=== PATIENT | female | born 1985 | race Caucasian/White ===

== ENCOUNTER 2018-04-06 12:28 | Emergency (ER) | payer BC ==
[2018-04-06] MEDS ORDERED: Ketorolac Tromethamine 30 MG/ML VIAL ONE ×2 (12:58→13:44)
[2018-04-06] MEDS ORDERED: Water For Inject, Bacteriostat 30 ML ONE (12:58)
[2018-04-06] MEDS ORDERED: diphenhydrAMINE 50 MG/ML VIAL ONE (12:58)
[2018-04-06] MEDS ORDERED: methylPREDNISolone Sod Succ/PF 125 MG/2 ML VIAL ONE (12:58)
[2018-04-06] MEDS ORDERED: Metoclopramide HCl 10 MG/2 ML VIAL ONE (12:58)
[2018-04-06 13:20] LABS: Pregnancy Test - Urine (BHCG) Negative (Negative); Pregu Control Background? CLEAR/WHITE (CLR/WHITE); Pregu Control Bar Appear? YES (CONTROL BAR); Specific Gravity 1.015 (1.002-1.036)
[2018-04-06 13:22] LABS: #Basophils 0.1 thou/uL (0.0-0.2); #Lymphocytes 1.4 thou/uL (1.20-3.40); #Monocytes 0.3 thou/uL (0.11-0.59); #Neutrophils 3.3 thou/uL (1.40-6.50); %Basophils 1.1 % (0.0-1.0); %Eosinophils 0.3 % (0.0-10.0); %Lymphocytes 27.6 % (21.0-51.0); %Monocytes 6.4 % (0.0-10.0); %Neutrophils 64.5 % (42.0-75.0); Hemoglobin 13.2 g/dL (12.0-16.0); Mean Corpuscular HGB CONC 34.5 g/dL (32.0-36.0); Mean Corpuscular Hemoglobin 30.4 pg (27.0-31.0); Mean Corpuscular Volume 88.1 fl (81.0-99.0); Mean Platelet Volume 9.6 fL (7.4-10.4); Platelet Count 177 thou/uL (130-400); RBC Distribution Width 10.8 % (11.5-14.5); Red Blood Cell (RBC) Count 4.36 mill/uL (4.20-5.40); White Blood Cell (WBC) Count 5.1 thou/uL (4.8-10.8)
[2018-04-06 13:29] LABS: ALT (SGPT) 11 U/L (8-55); AST (SGOT) 14 U/L (5-34); Albumin 4.3 g/dL (3.5-5.0); Alkaline Phosphatase 46 U/L (40-150); Anion Gap 12 mmol/L (10-20); BUN (Urea Nitrogen) 13 mg/dL (7.0-18.7); Bilirubin, Total 0.8 mg/dL (0.2-1.2); Calc. Creatinine Clearance 0 mL/min (70-130); Carbon Dioxide 27 mmol/L (22-29); Chloride 107 mmol/L (98-107); Estimated GFR-MDRD Greater than 90; Globulin 2.3 g/dL (2.4-3.5); Glucose 101 mg/dL (70-105); Potassium 3.8 mmol/L (3.5-5.1); Protein, Total 6.6 g/dL (6.0-8.3); Sodium 142 mmol/L (136-145)
--- NOTE | 2018-04-06 13:46 | CT ---
CT BRAIN WITHOUT CONTRAST: History: Headache, migraine. Comparison: 07-20-13 FINDINGS: No evidence of infarct, hemorrhage, midline shift, or abnormal extraaxial fluid collections are seen. The ventricular size is normal and the basilar cisterns patent. The bony calvarium is intact. The vi sualized paranasal sinuses and mastoid air cells are well aerated. IMPRESSION: No CT evidence of acute intracranial process. POS: [facility]
[2018-04-06] MEDS ORDERED: Magnesium Sulfate 2 GM/NS 0.9% 50 ML BAG ONE (14:13)
== END 2018-04-06 17:10 | disposition home or self-care (01) ==
LOC: SCSER 12:28
DX: G43.909 Migraine, unspecified, not intractable, without status migrainosus (principal); F32.9 Major depressive disorder, single episode, unspecified; Z79.899 Other long term (current) drug therapy
CPT/HCPCS: 70450; 80053; 81025; 84443; 85025; 96365; 96367; 96375; J1200; J1885; J2765; J2930; J3475

== ENCOUNTER 2018-04-22 13:18 | Emergency (ER) | payer BC ==
[~2018-04-22 13:18] MED LIST: Gadobenate Dimeglumine 529 MG/1 ML (20ML VIAL) ONE
[2018-04-22 15:38] LABS: #Basophils 0.1 thou/uL (0.0-0.2); #Lymphocytes 1.6 thou/uL (1.20-3.40); #Monocytes 0.3 thou/uL (0.11-0.59); #Neutrophils 5.6 thou/uL (1.40-6.50); %Basophils 0.7 % (0.0-1.0); %Eosinophils 0.3 % (0.0-10.0); %Lymphocytes 20.8 % (21.0-51.0); %Monocytes 4.3 % (0.0-10.0); Hemoglobin 14.2 g/dL (12.0-16.0); Mean Corpuscular HGB CONC 34.8 g/dL (32.0-36.0); Mean Corpuscular Hemoglobin 29.3 pg (27.0-31.0); Mean Corpuscular Volume 84.3 fL (78.0-98.0); Mean Platelet Volume 8.7 fL (7.4-10.4); Platelet Count 169 thou/uL (130-400); RBC Distribution Width 10.4 % (11.5-14.5); Red Blood Cell (RBC) Count 4.84 mill/uL (4.20-5.40); White Blood Cell (WBC) Count 7.6 thou/uL (4.8-10.8)
[2018-04-22 15:46] LABS: ALT (SGPT) 21 U/L (8-55); AST (SGOT) 22 U/L (5-34); Albumin 4.7 g/dL (3.5-5.0); Alkaline Phosphatase 44 U/L (40-150); Anion Gap 16 mmol/L (10-20); BUN (Urea Nitrogen) 12 mg/dL (7.0-18.7); Bilirubin, Total 0.3 mg/dL (0.2-1.2); CRP (Inflammatory) Less than 0.50 mg/dL (= or < 0.5); Calc. Creatinine Clearance 0 mL/min (70-130); Calcium 9.3 mg/dL (7.8-10.44); Carbon Dioxide 24 mmol/L (22-29); Chloride 107 mmol/L (98-107); Estimated GFR-MDRD Greater than 90; Globulin 2.4 g/dL (2.4-3.5); Glucose 87 mg/dL (70-105); Potassium 3.8 mmol/L (3.5-5.1); Protein, Total 7.1 g/dL (6.0-8.3); Sodium 143 mmol/L (136-145)
--- NOTE | 2018-04-22 15:46 | MRI ---
MRI BRAIN WITH AND WITHOUT CONTRAST: Date: 04/22/18 Multiplanar, multisequential imaging of brain obtained. Postcontrast images obtained after administra tion of 9 mL MultiHance IV. INDICATION: Headache. Correlation made to MRI brain from [address] brain of 04/06/18. FINDINGS: The ventricles have normal size and position. No evidence of mass or edema. No evidence of restricted diffusion. No evidence of white matter abnormality. The intracranial internal carotid arteries and c erebral arteries show flow-voids. Dural venous sinuses appear patent. Small mucus retention cyst in t he floor of the right maxillary antrum measuring approximately 1.0 cm. No abnormal enhancement identi fied. IMPRESSION: 1. Unremarkable MRI of brain. 2. Small mucus retention cyst floor of right maxillary sinus. POS: [facility]
== END 2018-04-22 17:33 | disposition home or self-care (01) ==
LOC: SCSER 13:18
DX: E05.90 Thyrotoxicosis, unspecified without thyrotoxic crisis or storm (principal); R51 Headache; F32.9 Major depressive disorder, single episode, unspecified; Z79.899 Other long term (current) drug therapy
CPT/HCPCS: 70553; 80053; 84443; 85025; 85652; 86140; 96361; 96374; A9579

== ENCOUNTER 2018-07-07 18:41 | Observation (INO) | payer BC ==
--- NOTE | 2018-07-07 19:31 | RAD ---
SINGLE VIEW OF THE CHEST: 07/07/18 COMPARISON: None. HISTORY: Fatigue and weakness with chest pain. FINDINGS: Single view of the chest shows a normal sized cardiomediastinal silhouette. There is no evidence of c onsolidation, mass, or pleural effusion. The bones are unremarkable. IMPRESSION: No evidence of acute cardiopulmonary disease. POS: [facility]
[2018-07-07 19:42] LABS: ALT (SGPT) 18 U/L (8-55); AST (SGOT) 21 U/L (5-34); Albumin 4.4 g/dL (3.5-5.0); Alkaline Phosphatase 55 U/L (40-150); Anion Gap 11 mmol/L (10-20); BUN (Urea Nitrogen) 16 mg/dL (7.0-18.7); Bilirubin, Total 0.3 mg/dL (0.2-1.2); CK (CPK) 93 U/L (29-168); Calc. Creatinine Clearance 0 mL/min (70-130); Calcium 8.9 mg/dL (7.8-10.44); Carbon Dioxide 22 mmol/L (22-29); Chloride 111 mmol/L (98-107); Estimated GFR-MDRD 85; Globulin 2.4 g/dL (2.4-3.5); Glucose 94 mg/dL (70-105); Potassium 3.7 mmol/L (3.5-5.1); Protein, Total 6.8 g/dL (6.0-8.3); Sodium 140 mmol/L (136-145)
[2018-07-07 19:43] LABS: CKMB 0.2 ng/mL (0-6.6); Troponin I Less than 0.010 ng/mL (< 0.028)
[2018-07-07] MEDS ORDERED: Metoclopramide HCl 10 MG/2 ML VIAL ONE (20:10)
[2018-07-07] MEDS ORDERED: Acetaminophen 500 MG TAB ONE (20:10)
[2018-07-07 20:21] LABS: #Basophils 0.1 thou/uL (0.0-0.2); #Lymphocytes 2.1 thou/uL (1.20-3.40); #Monocytes 0.3 thou/uL (0.11-0.59); #Neutrophils 2.8 thou/uL (1.40-6.50); %Basophils 1.1 % (0.0-1.0); %Eosinophils 0.9 % (0.0-10.0); %Lymphocytes 40.5 % (21.0-51.0); %Monocytes 4.9 % (0.0-10.0); %Neutrophils 52.6 % (42.0-75.0); Hemoglobin 13.9 g/dL (12.0-16.0); Mean Corpuscular HGB CONC 33.2 g/dL (32.0-36.0); Mean Corpuscular Hemoglobin 29.9 pg (27.0-31.0); Mean Platelet Volume 8.8 fL (7.4-10.4); Platelet Count 196 thou/uL (130-400); RBC Distribution Width 10.7 % (11.5-14.5); Red Blood Cell (RBC) Count 4.64 mill/uL (4.20-5.40); White Blood Cell (WBC) Count 5.2 thou/uL (4.8-10.8)
[2018-07-07 22:40] VITALS: BMI 16.7
[2018-07-07 23:01] LABS: Troponin I Less than 0.010 ng/mL (< 0.028)
[2018-07-07] MEDS ORDERED: Ondansetron HCl/PF 4 MG/2 ML Vial IVP PRN (23:21)
[2018-07-07] MEDS ORDERED: Acetaminophen 325 MG TAB PO PRN (23:21)
[2018-07-08] MEDS: Sodium Chloride 0.9% 1,000 ML IV SCH ×2 (00:07→14:25)
--- NOTE | 2018-07-08 01:14 | HP ---
DATE OF ADMISSION: 07/07/2018 PRIMARY CARE PHYSICIAN: Dr. Mavis Downs. CODE STATUS: FULL CODE. TIME OF EVALUATION: 11:30 p.m. CHIEF COMPLAINT: Substernal chest pain. HISTORY OF PRESENT ILLNESS: This is a 33-year-old female patient with past medical history of migraines, history of thyroid cancer, that has been in remission, came to the hospital after having shortness of breath on exertion and also having some on and off chest pain. The last one was today, substernal , reported as [id number]. No clear triggers, no alleviating factors, she also reported some associated cough, no fever was noted. Patient has had some workup for possible immunological disease versus possible neurological syndrome. Patient has had left-sided weakness and has had multiple MRIs, MRAs, and CT with no evidence of any diagnosis as of now, she is receiving that workup. Pending Rheumatology workup for further treatment. The EKG in the ER, she was found to have ST depressions in leads V2, V3, aVF and also V3 to V6, troponin was negative, we will place Cardiology consult for assistance with this case. REVIEW OF SYSTEMS: Constitutional: No fever or chills. Patient reported generalized weakness. Respiratory: Patient has no cough, no sputum production , shortness of breath. Cardiovascular: Patient has reported chest pain or palpitations. Gastrointestinal: No nausea, no abdominal pain, no diarrhea. 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 Patient has long-term left-sided weakness that she feels remains the same. Genitourinary: No burning on urination. Extremities: No leg swelling. All other systems were reviewed and negative except for the findings mentioned above. PAST MEDICAL HISTORY: Positive for migraine, thyroid cancer. PAST SURGICAL HISTORY: Thyroidectomy, x2, deviated septum repair. PSYCHIATRIC HISTORY: Depression. FAMILY HISTORY : Reviewed and non contributory for current presentation. SOCIAL HISTORY: Patient drinks socially. No drug use, no smoking history. DRUG ALLERGIES: No known drug allergies. REPORTED MEDICATIONS: Synthroid, gabapentin. PHYSICAL EXAMINATION: VITAL SIGNS: On presentation, blood pressure 105/86 with heart rate 100, respiratory rate was 18, temperature 98.1, pain 7/10, oxygen saturation 97 on room air. GENERAL APPEARANCE: The patient is alert, oriented, not in any acute distress. HEENT: Eye, normal conjunctiva. Moist oral mucosa. Anicteric. NECK: No JVD. RESPIRATORY: Bilateral air entry. No rales, no wheezing. Symmetrical expansion. CARDIOVASCULAR: Normal rate, regular rhythm. No murmurs, no gallop. No edema. ABDOMEN: Soft, normal bowel sounds. MUSCULOSKELETAL: Baseline range of motion and strength. No tenderness. SKIN: Warm and intact. No pallor, no rash, no redness. NEUROLOGIC: Cranial nerve seems to be intact. PSYCHIATRIC: Patient is in good mood, no anxiety, oriented, optimal judgment. IMAGING: EKG was reviewed by myself. The patient has normal sinus rhythm with T-wave abnormality in lead II, III and aVF and also in V3 to V5 to V6. Chest x- ray, patient has no evidence of acute cardiopulmonary disease. LABORATORY DATA: White count was normal, hemoglobin was normal, platelet count was normal. D-dimer was negative. Sodium 140, potassium 3.7, chloride 111, carbon dioxide 22, anion gap 11, BUN 16, creatinine 0.7, GFR 85, glucose 94, calcium 8.9. LFTs are normal. Troponin is negative x2. ASSESSMENT AND PLAN: The patient will be placed in the hospital with the following medical problems. 1. Chest pain, rule out acute coronary syndrome. This very young patient possibility for underlying disease is present. We are consulting Dr. Yi for assistance with this case. We will follow recommendations. 2. 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 Patient has got extensive neurological workup. She reported that she is going to complete the workup in [place] and no need for any acute intervention at this point from our part. 3. Deep venous thrombosis prophylaxis. 4. Hypothyroidism. Continue levothyroxine. MTDD
[2018-07-08 02:05] LABS: BHCG - Serum Negative (NEGATIVE); Pregs Control Background? CLEAR/WHITE (CLR/WHITE); Pregs Control Bar Appear? YES (CONTROL BAR)
[2018-07-08 02:28] LABS: Troponin I Less than 0.010 ng/mL (< 0.028)
[2018-07-08 04:23] LABS: #Eosinphils 0.1 thou/uL (0.0-0.7); #Lymphocytes 1.9 thou/uL (1.20-3.40); #Monocytes 0.3 thou/uL (0.11-0.59); #Neutrophils 2.4 thou/uL (1.40-6.50); %Basophils 0.4 % (0.0-1.0); %Eosinophils 1.3 % (0.0-10.0); %Lymphocytes 40.8 % (21.0-51.0); %Monocytes 7.2 % (0.0-10.0); %Neutrophils 50.2 % (42.0-75.0); Mean Corpuscular HGB CONC 35.1 g/dL (32.0-36.0); Mean Corpuscular Hemoglobin 32.3 pg (27.0-31.0); Mean Corpuscular Volume 91.9 fL (78.0-98.0); Mean Platelet Volume 8.3 fL (7.4-10.4); Platelet Count 177 thou/uL (130-400); RBC Distribution Width 11.3 % (11.5-14.5); Red Blood Cell (RBC) Count 3.73 mill/uL (4.20-5.40); White Blood Cell (WBC) Count 4.7 thou/uL (4.8-10.8)
[2018-07-08 04:29] LABS: Anion Gap 11 mmol/L (10-20); BUN (Urea Nitrogen) 18 mg/dL (7.0-18.7); Calc. Creatinine Clearance 84 mL/min (70-130); Calcium 8.2 mg/dL (7.8-10.44); Carbon Dioxide 19 mmol/L (22-29); Chloride 112 mmol/L (98-107); Estimated GFR-MDRD Greater than 90; Glucose 94 mg/dL (70-105); Potassium 3.4 mmol/L (3.5-5.1); Sodium 139 mmol/L (136-145)
[2018-07-08] MEDS ORDERED: Levothyroxine Sodium 125 MCG TAB PO SCH (06:00)
[2018-07-08] MEDS: Gabapentin 100 MG CAP PO SCH ×2 (09:18→15:16)
[2018-07-08] MEDS ORDERED: ADENOSINE 60 MG/20 ML VIAL ONE (13:45)
[2018-07-08 14:55] VITALS: BP 104/65; TEMP 98.2
--- NOTE | 2018-07-08 15:16 | NM ---
RADIONUCLIDE STRESS REST MYOCARDIAL PERFUSION SCAN WITH CT ATTENUATION CORRECTION AND SPECT IMAGING LEFT VENTRICULAR WALL MOTION EVALUATION AND EJECTION FRACTION: HISTORY: chest pain FINDINGS: Adenosine protocol. Homogeneous uptake of radiotracer throughout the left ventricular myocardium. N o focal perfusion defect or reversibility. QGS analysis of gated SPECT images shows no focal wall mo tion abnormalities. Left ventricular ejection fraction estimated at 65%. IMPRESSION: Normal myocardial perfusion scan. Normal left ventricular ejection fraction. POS: [facility]
--- NOTE | 2018-07-08 15:19 | DIS ---
DATE OF ADMISSION: 07/07/2018 DATE OF DISCHARGE: 07/08/2018 PRIMARY CARE PROVIDER: Mavis Downs M.D. FINAL DIAGNOSES: Chest pain, unknown etiology; migraine headaches; hypothyroidism post-thyroid cance r surgery therapy; depression. DISCHARGE MEDICATIONS: Same as home medicines, levothyroxine 125 mcg a day, topiramate 150 mg at bed time, Zoloft 75 mg a day, gabapentin 100 mg 3 times a day, [id number]-idlwkmro 5-300-40 one tablet t.i.d. as needed for headaches. ALLERGIES: Allergic to MAXALT. CODE STATUS: FULL. PENDING AT THE TIME OF DISCHARGE: Nothing. DIET: Regular. HOSPITAL COURSE: The patient admitted with atypical chest pain, left-sided, aching to sharp. The cherelle choi has a history of thyroid cancer. She was found to have abnormal EKG. Laboratory was unremarka ble including the cardiac enzymes despite her age and lack of risk factors. Cardiac stress test was done, which is normal. She also had a D-dimer which was normal. This was explained to that patient explained that she should follow up with her PCP, who could provide further therapy and diagnosis. PROCEDURES: None. CONSULTATIONS: None.
[2018-07-08] MEDS ORDERED: TOPIRAMATE 150 MG PO SCH (21:00)
--- NOTE | 2018-07-15 09:28 | STRESS ---
Acquisition Time: 2018-07-08 13:05:21 Total Exercise Time: 00:04:00 Test Indications: CHEST PAIN Medications: Protocol: ADENOSINE Max HR: 114 BPM 60% of Pred: 189 BPM Max BP: 108/070 mmHG Max Work Load: 1.0 METS THE PATIENT WAS INJECTED WITH ADENOSINE. SHE DID DEVELOP CHEST PAIN. THERE WAS NON-DIAGNOSTIC T-WAVE CHANGES. AWAIT NUCLEAR IMAGES FOR DEFINITIVE DIAGNOSIS. Confirmed by ENRIQUETA HALL ([id number]), editorial writer TRUMAN RENTERIA ([id number]) on 07/15/2018 9:28:14 AM Referred By: MD Amina SALAZAR Confirmed By:ENRIQUETA HALL
== END 2018-07-08 15:55 | disposition home or self-care (01) ==
LOC: SCSER 18:41 → 2SW 20:10
PROVIDERS: ADMIT Hospitalist; ATTEND Hospitalist
DX: R07.9 Chest pain, unspecified (principal); E03.9 Hypothyroidism, unspecified; Z79.899 Other long term (current) drug therapy; Z88.8 Allergy status to other drugs, medicaments and biological substances
CPT/HCPCS: 36415; 71045; 78452; 80048; 80053; 82553; 84484; 84703; 85025; 85379; 93005; 93017; 94760; 96361; 96365; 96366; A9500; G0378; J0153; J2765